=== PATIENT | male | born 1980 | race Caucasian/White ===

== ENCOUNTER → 2024-08-28 11:45 | Outpatient (CLI) | payer BC, SELFPAY ==
--- NOTE | 2024-08-28 11:51 | DI.RAD.S_ITS ---
PROCEDURE: XR ANKLE RT MIN 3V INDICATIONS: ANKLE SPRAIN TECHNIQUE: 3 views of the ankle were acquired. COMPARISON: None. FINDINGS: Bones: No fractures or dislocations. Ankle mortise is normally aligned. No suspicious bony lesions. Soft tissues: No tibiotalar joint effusion. Achilles tendon appears normal. IMPRESSION: No acute bony abnormality or significant effusion. Dictated by: Jaron Phillips M.D. on 08/28/2024 at 22:26 Approved by: Jaron Phillips M.D. on 08/28/2024 at 22:27
--- NOTE | 2024-08-28 11:51 | DI.RAD.S_ITS ---
PROCEDURE: XR ANKLE LT MIN 3V INDICATIONS: ANKLE SPRAIN TECHNIQUE: 3 views of the ankle were acquired. COMPARISON: None. FINDINGS: Bones: No fractures or dislocations. Ankle mortise is normally aligned. No suspicious bony lesions. Soft tissues: No tibiotalar joint effusion. Achilles tendon appears normal. IMPRESSION: No acute bony abnormality or significant effusion. Dictated by: Jaron Phillips M.D. on 08/28/2024 at 22:27 Approved by: Jaron Phillips M.D. on 08/28/2024 at 22:28
== END ==
LOC: RAD 11:49
PROVIDERS: PCP Family Medicine; Referring Provider Family Medicine; Visit Provider Family Medicine
DX: S93.402A Sprain of unspecified ligament of left ankle, initial encounter (principal); S93.401A Sprain of unspecified ligament of right ankle, initial encounter; X58.XXXA Exposure to other specified factors, initial encounter
CPT/HCPCS: 73610